=== PATIENT | male | born 1990 | race American Indian/Alaskan Native ===

== ENCOUNTER 2020-08-08 18:04 | Emergency (ER) | payer OTHER ==
--- NOTE | 2020-08-08 18:26 | EDM.PDOC ---
ED HPI GENERAL MEDICAL PROBLEM - General Chief Complaint: Gastrointestinal Problem Stated Complaint: vomiting Blood, Laceration right Wrist Time Seen by Provider: 08/08/20 18:25 Source of Information: Reports: Patient History Limitations: Reports: No Limitations - History of Present Illness INITIAL COMMENTS - FREE TEXT/NARRATIVE: 29 yo F who was brought [facility] the ER from the [facility] with h/o vomiting blood as well as self inflicted laceration to the right wrist. Patient is currently in [facility]. Reports that he has been feeling depressed today. He developed sudden onset abdominal pain which he rates as 5/10. Had episodes of hematemesis. Reportedly vomited about 500 cc. Patient has been feeling depressed as well. He self inflicted laceration to the right wrist. EMS crew was called and patient was brought to the ER for further evaluation. Onset: Today Onset Time: 18:25 Location: Reports: Abdomen Quality: Reports: Sharp Severity: Severe Abdominal pain, R wrist Pain Score (Numeric/FACES): 8 - Related Data Allergies Allergy/AdvReac Type Severity Reaction Status Date / Time No Known Allergies Allergy Verified 08/08/20 18:27 Home Meds: Home Meds NK [No Known Home Meds] 08/08/20 [History] ED ROS GENERAL - Review of Systems Review Of Systems: See Below Constitutional: Reports: No Symptoms HEENT: Reports: No Symptoms Respiratory: Reports: No Symptoms Cardiovascular: Reports: No Symptoms GI/Abdominal: Reports: Abdominal Pain, Hematemesis : Reports: No Symptoms Musculoskeletal: Reports: No Symptoms Skin: Reports: No Symptoms Neurological: Reports: No Symptoms Psychiatric: Reports: No Symptoms Hematologic/Lymphatic: Reports: No Symptoms Immunologic: Reports: No Symptoms ED EXAM, GI/ABD - Physical Exam Exam: See Below Exam Limited By: No Limitations General Appearance: WD/WN, No Apparent Distress Eyes: Bilateral: Normal Appearance Ears: Normal External Exam, Normal Canal, Normal TMs Nose: Normal Inspection Throat/Mouth: Normal Inspection, Normal Oropharynx Head: Atraumatic, Normocephalic Neck: Normal Inspection, Supple, Non-Tender Respiratory/Chest: No Respiratory Distress, Lungs Clear Cardiovascular: Normal Peripheral Pulses, Regular Rate, Rhythm, No Edema GI/Abdominal Exam: Normal Bowel Sounds, Soft, Non-Tender, No Organomegaly Back Exam: Normal Inspection Extremities: Normal Inspection, Other (Right wrist -- 3 cm Laceration right wrist) Neurological: Alert, Oriented Psychiatric: Normal Affect Skin Exam: Warm, Dry Lymphatic: No Adenopathy ED ABDOMINAL/GI PROCEDURES - Additional/Other Procedure(s) Procedure(s) (Free Text): Procedure Note Procedure name -- Laceration repair. >>>Consent obtained. Wound cleaned and irrigated Site draped.Local anesthesia Wound repair was done with size 4 Ethilon. Patient tolerated procedure well. Dressing applied Course - Vital Signs Last Recorded V/S: Last Vital Signs Temp 36.8 C 08/08/20 18:04 Pulse 102 H 08/08/20 18:04 Resp 18 08/08/20 18:04 BP 134/86 08/08/20 18:04 Pulse Ox 100 08/08/20 18:04 - Orders/Labs/Meds Orders: Active Orders 24 hr Category Date Time Status Vaccines to be Administered [RC] PER UNIT ROUTINE Care 08/08/20 18:21 Active Labs: Laboratory Tests 08/08/20 08/08/20 08/08/20 Range/Units 18:15 18:15 18:15 WBC 8.0 (4.5-12.0) X10-3/uL RBC 4.97 (4.30-5.75) x10(6)uL Hgb 8.3 L (13.5-17.8) g/dL Hct 27.7 L (30.0-51.3) % MCV 55.7 L (80-96) fL MCH 16.6 L (27.7-33.6) pg MCHC 29.8 L (32.2-35.4) g/dL RDW 23.6 H (11.5-15.5) % Plt Count 523 H (125-369) X10(3)uL MPV 6.9 L (7.4-10.4) fL Add Manual Diff Yes Neutrophils % (Manual) 75 (46-82) % Lymphocytes % (Manual) 20 (13-37) % Monocytes % (Manual) 5 (4-12) % Hypochromasia Many H PT 10.5 (9.0-11.1) sec INR 0.97 L (1.00-1.24) Sodium 140 (135-145) mmol/L Potassium 3.1 L (3.5-5.3) mmol/L Chloride 102 (100-110) mmol/L Carbon Dioxide 22 (21-32) mmol/L BUN 21 H (7-18) mg/dL Creatinine 1.3 (0.70-1.30) mg/dL Est Cr Clr Drug Dosing TNP Estimated GFR (MDRD) > 60 (>60) BUN/Creatinine Ratio 16.2 (9-20) Glucose 102 (80-116) mg/dL Calcium 9.0 (8.6-10.2) mg/dL Magnesium (1.8-2.5) mg/dL Total Bilirubin 0.7 (0.1-1.3) mg/dL AST 13 (5-25) IU/L ALT 25 (12-36) U/L Alkaline Phosphatase 111 (56-112) IU/L Total Protein 7.7 (6.0-8.0) g/dL Albumin 3.7 (3.5-5.2) g/dL Globulin 4.0 g/dL Albumin/Globulin Ratio 0.9 TSH, Ultra Sensitive (0.36-3.74) IU/mL Urine Color (YELLOW) Urine Appearance (CLEAR) Urine pH (5.0-6.5) Ur Specific [place] (1.010-1.025) Urine Protein (NEGATIVE) mg/dL Urine Glucose (UA) (NORMAL) mg/dL Urine Ketones (NEGATIVE) mg/dL Urine Occult Blood (NEGATIVE) Urine Nitrite (NEGATIVE) Urine Bilirubin (NEGATIVE) Urine Urobilinogen (NEGATIVE) mg/dL Ur Leukocyte Esterase (NEGATIVE) Urine RBC (0-5) Urine WBC (0-5) Ur Squamous Epith Cells (NS,R,O) Calcium Oxalate Crystal (NS) Urine Bacteria (NS) Salicylates (<2.8) mg/dL Urine Opiates Screen (NEGATIVE) Ur Oxycodone Screen (NEGATIVE) Ur Propoxyphene Screen (NEGATIVE) Acetaminophen (<2) ug/mL Ur Barbituates Screen (NEGATIVE) Ur Tricyclics Screen (NEGATIVE) Ur Phencyclidine Scrn (NEGATIVE) Ur Amphetamine Screen (NEGATIVE) Urine MDMA Screen (NEGATIVE) U Benzodiazepines Scrn (NEGATIVE) U Cocaine Metab Screen (NEGATIVE) U Marijuana (THC) Screen (NEGATIVE) Ethyl Alcohol (<0.03) % 08/08/20 08/08/20 08/08/20 Range/Units 18:15 18:15 18:15 WBC (4.5-12.0) X10-3/uL RBC (4.30-5.75) x10(6)uL Hgb (13.5-17.8) g/dL Hct (30.0-51.3) % MCV (80-96) fL MCH (27.7-33.6) pg MCHC (32.2-35.4) g/dL RDW (11.5-15.5) % Plt Count (125-369) X10(3)uL MPV (7.4-10.4) fL Add Manual Diff Neutrophils % (Manual) (46-82) % Lymphocytes % (Manual) (13-37) % Monocytes % (Manual) (4-12) % Hypochromasia PT (9.0-11.1) sec INR (1.00-1.24) Sodium (135-145) mmol/L Potassium (3.5-5.3) mmol/L Chloride (100-110) mmol/L Carbon Dioxide (21-32) mmol/L BUN (7-18) mg/dL Creatinine (0.70-1.30) mg/dL Est Cr Clr Drug Dosing Estimated GFR (MDRD) (>60) BUN/Creatinine Ratio (9-20) Glucose (80-116) mg/dL Calcium (8.6-10.2) mg/dL Magnesium (1.8-2.5) mg/dL Total Bilirubin (0.1-1.3) mg/dL AST (5-25) IU/L ALT (12-36) U/L Alkaline Phosphatase (56-112) IU/L Total Protein (6.0-8.0) g/dL Albumin (3.5-5.2) g/dL Globulin g/dL Albumin/Globulin Ratio TSH, Ultra Sensitive 0.53 (0.36-3.74) IU/mL Urine Color (YELLOW) Urine Appearance (CLEAR) Urine pH (5.0-6.5) Ur Specific [place] (1.010-1.025) Urine Protein (NEGATIVE) mg/dL Urine Glucose (UA) (NORMAL) mg/dL Urine Ketones (NEGATIVE) mg/dL Urine Occult Blood (NEGATIVE) Urine Nitrite (NEGATIVE) Urine Bilirubin (NEGATIVE) Urine Urobilinogen (NEGATIVE) mg/dL Ur Leukocyte Esterase (NEGATIVE) Urine RBC (0-5) Urine WBC (0-5) Ur Squamous Epith Cells (NS,R,O) Calcium Oxalate Crystal (NS) Urine Bacteria (NS) Salicylates < 2.8 L (<2.8) mg/dL Urine Opiates Screen (NEGATIVE) Ur Oxycodone Screen (NEGATIVE) Ur Propoxyphene Screen (NEGATIVE) Acetaminophen < 2 L (<2) ug/mL Ur Barbituates Screen (NEGATIVE) Ur Tricyclics Screen (NEGATIVE) Ur Phencyclidine Scrn (NEGATIVE) Ur Amphetamine Screen (NEGATIVE) Urine MDMA Screen (NEGATIVE) U Benzodiazepines Scrn (NEGATIVE) U Cocaine Metab Screen (NEGATIVE) U Marijuana (THC) Screen (NEGATIVE) Ethyl Alcohol < 0.03 (<0.03) % 08/08/20 08/08/20 08/08/20 Range/Units 18:15 20:00 20:00 WBC (4.5-12.0) X10-3/uL RBC (4.30-5.75) x10(6)uL Hgb (13.5-17.8) g/dL Hct (30.0-51.3) % MCV (80-96) fL MCH (27.7-33.6) pg MCHC (32.2-35.4) g/dL RDW (11.5-15.5) % Plt Count (125-369) X10(3)uL MPV (7.4-10.4) fL Add Manual Diff Neutrophils % (Manual) (46-82) % Lymphocytes % (Manual) (13-37) % Monocytes % (Manual) (4-12) % Hypochromasia PT (9.0-11.1) sec INR (1.00-1.24) Sodium (135-145) mmol/L Potassium (3.5-5.3) mmol/L Chloride (100-110) mmol/L Carbon Dioxide (21-32) mmol/L BUN (7-18) mg/dL Creatinine (0.70-1.30) mg/dL Est Cr Clr Drug Dosing Estimated GFR (MDRD) (>60) BUN/Creatinine Ratio (9-20) Glucose (80-116) mg/dL Calcium (8.6-10.2) mg/dL Magnesium 2.1 (1.8-2.5) mg/dL Total Bilirubin (0.1-1.3) mg/dL AST (5-25) IU/L ALT (12-36) U/L Alkaline Phosphatase (56-112) IU/L Total Protein (6.0-8.0) g/dL Albumin (3.5-5.2) g/dL Globulin g/dL Albumin/Globulin Ratio TSH, Ultra Sensitive (0.36-3.74) IU/mL Urine Color Yellow (YELLOW) Urine Appearance Slightly cloudy (CLEAR) Urine pH 6.5 (5.0-6.5) Ur Specific [place] 1.010 (1.010-1.025) Urine Protein 30 H (NEGATIVE) mg/dL Urine Glucose (UA) Normal (NORMAL) mg/dL Urine Ketones 50 H (NEGATIVE) mg/dL Urine Occult Blood Negative (NEGATIVE) Urine Nitrite Negative (NEGATIVE) Urine Bilirubin Small H (NEGATIVE) Urine Urobilinogen 1 H (NEGATIVE) mg/dL Ur Leukocyte Esterase Negative (NEGATIVE) Urine RBC 0-5 (0-5) Urine WBC 0-5 (0-5) Ur Squamous Epith Cells Occasional (NS,R,O) Calcium Oxalate Crystal Few H (NS) Urine Bacteria Rare H (NS) Salicylates (<2.8) mg/dL Urine Opiates Screen Negative (NEGATIVE) Ur Oxycodone Screen Negative (NEGATIVE) Ur Propoxyphene Screen Negative (NEGATIVE) Acetaminophen (<2) ug/mL Ur Barbituates Screen Negative (NEGATIVE) Ur Tricyclics Screen Negative (NEGATIVE) Ur Phencyclidine Scrn Negative (NEGATIVE) Ur Amphetamine Screen Positive H (NEGATIVE) Urine MDMA Screen Positive H (NEGATIVE) U Benzodiazepines Scrn Negative (NEGATIVE) U Cocaine Metab Screen Negative (NEGATIVE) U Marijuana (THC) Screen Positive H (NEGATIVE) Ethyl Alcohol (<0.03) % Meds: Medications Discontinued Medications Generic Name Dose Route Start Last Admin Trade Name Freq PRN Reason Stop Dose Admin Diphtheria/Tetanus/Acell Pertussis 0.5 ml 08/08/20 18:21 08/08/20 18:40 Adacel IM 08/08/20 18:22 0.5 ml .ONCE ONE Administration Sodium Chloride 1,000 mls @ 1,000 mls/hr 08/08/20 18:20 08/08/20 18:50 Normal Saline IV 08/08/20 19:19 1,000 mls/hr .BOLUS ONE Administration Iopamidol 100 ml 09/18/20 18:36 08/08/20 18:55 Isovue-370 (76%) IV 08/08/20 18:37 100 ml . DIRECTED ONE Administration Pantoprazole Sodium 80 mg 08/08/20 18:20 08/08/20 18:50 Protonix Iv IVPUSH 08/08/20 18:21 80 mg .BOLUS ONE Administration Potassium Chloride 40 meq 08/08/20 19:46 08/08/20 20:01 Klor-Con M20 PO 08/08/20 19:47 40 meq ONETIME ONE Administration Departure - Departure Time of Disposition: 20:38 Disposition: DC/Tfer to Other 70 Clinical Impression: GI bleed, Wrist laceration, Suicide and self-inflicted injury - Discharge Information *PRESCRIPTION DRUG MONITORING PROGRAM REVIEWED*: No *COPY OF PRESCRIPTION DRUG MONITORING REPORT IN PATIENT KAREEM: No Instructions: Pantoprazole injection, VIS, Tetanus, Diphtheria, and Pertussis (Tdap) - CDC (01/14/2015) Referrals: PCP,None [Primary Care Provider] - Forms: ED Department Discharge, Interfacility Transfer [facility] Sepsis Event Note (ED) - Focused Exam Vital Signs: Vital Signs Temp Pulse Resp BP Pulse Ox 08/08/20 18:04 36.8 C 102 H 18 134/86 100 - My Orders Last 24 Hours: My Active Orders 08/08/20 18:21 Vaccines to be Administered [RC] PER UNIT ROUTINE - Assessment/Plan Last 24 Hours: My Active Orders 08/08/20 18:21 Vaccines to be Administered [RC] PER UNIT ROUTINE
[2020-08-08] MEDS: Diphtheria,Pertussis(Acell),Tetanus Vaccine 0.5 ML SDV IM ONE (18:40)
[2020-08-08] MEDS: Pantoprazole 40 MG Vial IVPUSH ONE (18:50)
[2020-08-08] MEDS: Sodium Chloride 0.9% 1,000 ML IV ONE (18:50)
[2020-08-08] MEDS: Iopamidol 755 Mg/ML 100 ML Bottle IV ONE (18:55)
--- NOTE | 2020-08-08 19:42 | CT ---
INDICATION: Abdominal pain. Pain appears to be whole abdomen and right lower quadrant. CT CHEST, ABDOMEN AND PELVIS WITH CONTRAST: Spiral 3.75 mm axial sections were obtained through the chest, abdomen and pelvis with 100 mL Isovue-370 at 2 mL/second, with sagittal and coronal reconstructions, 08/08/20 - no comparisons. Total exam DLP was 1163.68 mGy-cm. CT CHEST: Examination of the chest was obtained by CT as noted above and revealed no mediastinal mass. The heart appeared normal in size. No pericardial effusion was seen. An active infiltrate or effusion was not identified. A small nodular appearing density is noted on axial image 69 and may represent a lymph node. Followup study in 6 to 9 months may be helpful for confirmation. There is a prominent vessel in the left upper lobe peripherally on axial image 58 of questionable significance. IMPRESSION: 1. No acute process. 2. Minimal nodule on the right in the lower lobe, likely a benign process such as a lymph node. Followup study in 6 to 9 months is recommended for confirmation, however. CT ABDOMEN AND PELVIS: Examination of the abdomen and pelvis was obtained as noted above and revealed the liver to have a normal appearance. No gallstones were demonstrated. Adrenal glands and kidneys appeared normal. No obstructive uropathy was suggested. The spleen and the pancreas appear to be normal. The common bile duct was normal in caliber. The gastric mucosa is not well delineated due to lack of full distension. It may be very slightly prominent raising question of a mild gastritis versus due to nondistension - correlate clinically. There is some thickening of the wall of the duodenum extending into the vertical and horizontal portions and also affecting a proximal jejunal loop beyond the ligament of Treitz. Findings may represent peptic ulcer disease although other etiologies such as a paracystic infestation would be a consideration. The thickened gillette appear to extend into a few of a proximal jejunal loops additionally. Beyond that, the bowel loops were grossly unremarkable with no evidence of free air or bowel obstruction identified. There are some metallic densities in the bowel which may represent medication. The appendix is not definitely visualized. No evidence of a hernia was seen. Urinary bladder wall appears slightly thickened which may be partly due to lack of full distension but does raise question of cystitis. No other organomegaly, mass lesions or free fluid collections were identified in the abdomen or pelvis. IMPRESSION: 1. Thickened wall may be present in the gastric area, however, the stomach was not fully distended which may be at least partly responsible for the appearance of thickened wall. 2. Thickened wall of the duodenum extending into loops of the proximal jejunum, etiology indeterminate, question possibility of peptic ulcer disease versus parasitic infestation. This should be correlated clinically also. 3. No evidence of bowel obstruction is identified. 4. There is an appearance of some metallic material within the GI tract in the area of the stomach and distal small bowel which may be on the basis of medication. 5. Thickening of the wall of the urinary bladder which could be on the basis of cystitis and possibly emphasized by lack of distension of the urinary bladder. Report was called to Dr. Roberts at 1917 hours. [facility]
[2020-08-08 19:46] LABS: ACETAMINOPHEN < 2 ug/mL (<2)
[2020-08-08] MEDS: Potassium Chloride 20 MEQ Tab.ER PO ONE (20:01)
== END 2020-08-08 21:50 | disposition other institution (70) ==
LOC: FB.ED 18:04
DX: S61.511A Laceration without foreign body of right wrist, initial encounter (principal); K92.2 Gastrointestinal hemorrhage, unspecified; Z23 Encounter for immunization; X78.1XXA Intentional self-harm by knife, initial encounter; Y92.149 Unspecified place in prison as the place of occurrence of the external cause
CPT/HCPCS: 12002; 36415; 71260; 74177; 80053; 80305-QW; 80307; 81001; 83735; 84443; 85025; 85610; 90471; 90715; 96361; 96374; 99283; 99285-25; A9270-GY; C9113; J7030; Q9967

== ENCOUNTER 2022-07-14 21:28 | Emergency (ER) | payer OTHER ==
[2022-07-14] MEDS ORDERED: hydrOXYzine HCl 50 MG/ML SDV IM ONE (21:29)
== END 2022-07-14 22:10 ==
LOC: FB.ED 21:28
DX: F41.0 Panic disorder [episodic paroxysmal anxiety] (principal)
CPT/HCPCS: 82947; 99285